=== PATIENT | male | born 1995 | race Two or more races ===

== ENCOUNTER 2023-06-23 14:13 | Emergency (ER) | payer MEDICAID, OTHER ==
[~2023-06-23] VITALS: Ht 175.3 cm; Wt 109.5 kg
[2023-06-23 14:54] VITALS: BP 111/71; PULSE 90; RESP 18; TEMP 97.1; O2SAT 98
== END 2023-06-23 16:28 | disposition home or self-care (01) ==
LOC: ER 14:13
DX: Z00.00 Encounter for general adult medical examination without abnormal findings (principal); R25.2 Cramp and spasm; M79.642 Pain in left hand